=== PATIENT | male | born 1985 | race Two or more races ===

== ENCOUNTER 2023-12-04 10:07 | Emergency (ER) | payer MEDICAID, OTHER ==
[~2023-12-04] VITALS: Ht 170.2 cm; Wt 99.4 kg
[2023-12-04 10:43] VITALS: BP 120/90; PULSE 112; RESP 18; TEMP 97.1; O2SAT 100
[2023-12-04] MEDS ORDERED: PRED20TA2 PO ×3 (10:44→12:07)
[2023-12-04] MEDS ORDERED: AZIT-43 PO ×3 (10:44→12:07)
[2023-12-04] MEDS ORDERED: methylPREDNISolone SOD SUCC 125 MG/2 ML VL IM ONE (10:45)
== END 2023-12-04 11:28 | disposition home or self-care (01) ==
LOC: ER 10:07
DX: J20.9 Acute bronchitis, unspecified (principal)
CPT/HCPCS: 71045; 96372; 99283; J2930